=== PATIENT | female | born 1975 | race Caucasian/White ===

== ENCOUNTER 2020-10-22 22:12 | Emergency (ER) | payer OTHER, SELFPAY ==
[2020-10-22 22:13] VITALS: BP 134/57; PULSE 77; RESP 18; TEMP 36.7; O2SAT 99; BMI 61.9
[2020-10-22 23:27] LABS: Glucose Urine UA NEG (NEG); Leukocyte Esterase Urine NEG (NEG); Nitrite Urine NEG (NEG); Urine Blood NEG (NEG); Urine Ketones NEG (NEG); Urine Protein NEG (NEG-TRACE)
[2020-10-22] MEDS: Acetaminophen 325 MG TABLET 975 MG PO (23:28)
[2020-10-22] MEDS: Ibuprofen 400 MG TABLET PO (23:28)
[2020-10-22 23:30] LABS: Appearance Urine CLEAR; Color Urine YELLOW
[2020-10-22 23:38] LABS: Glucose, Whole Blood 103 mg/dL (60-115)
--- NOTE | 2020-10-23 | ED_ITS ---
HPI - General Adult General Chief complaint: General Medical Stated complaint: Bodyaches Time Seen by Provider: 10/22/20 22:54 Source: patient Mode of arrival: ambulatory History of Present Illness HPI narrative: 44-year-old female with history of diabetes presents with entire body aches without associated fever, chills, sore throat, cough. Patient states that this is been ongoing for months and she expresses significant frustration with the process of evaluation between her primary care provider and referrals for recreational therapist regarding her body pain. Otherwise, patient denies any shortness of breath, chest pain / palpitations, nausea /vomiting/diarrhea or urinary symptoms. Patient takes her prescribed medications as directed. Related Data Home Medications Medication Instructions Recorded Confirmed betamethasone dipropionate 1 appl TOPICAL BID 10/22/20 10/22/20 betamethasone, augmented 1 appl TOPICAL BID 10/22/20 10/22/20 triamcinolone acetonide TOPICAL 10/22/20 Previous Rx's Medication Instructions Recorded metformin 500 mg tablet 500 mg PO TID #90 tab 09/04/20 Allergies Allergy/AdvReac Type Severity Reaction Status Date / Time No Known Allergies Allergy Verified 09/04/20 13:33 Review of Systems Review of Systems: Pertinent positives and negatives as stated in HPI 10 point review of systems is otherwise negative. [facility] Past Medical History Source: nursing notes reviewed Medical History Carpal tunnel syndrome Headache Pre-diabetes Surgical History History of cholecystectomy Family History Family History Mother Diabetes Maternal Aunt Diabetes Maternal Grandmother No problems noted. Social History Social History Alcohol intake: never Patient Tobacco Use Status: Never used Tobacco Use of substances other than those prescribed or required for medical reasons: No Advance Directives: No Patient : No Physical Exam Vital Signs: Vital Signs: Last Vital Signs Temp 98.0 F 10/22/20 22:13 Pulse 77 10/22/20 22:13 Resp 18 10/22/20 22:13 BP 134/57 L 10/22/20 22:13 Pulse Ox 99 10/22/20 22:13 Body Mass Index 61.9 VITAL SIGNS: Reviewed. GENERAL: Morbidly obese, well- developed, well nourished, in no acute distress. HEAD: Normocephalic/atraumatic EYES: PERRLA, EOMI EARS: Ext canals without abnormality OROPHARYNX: no oral lesions noted, posterior pharynx clear LUNGS: Normal breath sounds. No adventitious sounds or accessory muscle use. SpO2<99> CARDIOVASCULAR: Regular rate and rhythm without noted murmurs, no JVD or lower extremity edema. ABDOMEN: obese, Soft, non-tender, non-distended with bowel sounds. Exam limited by body habitus. MUSCULOSKELETAL: No tenderness, deformities, or effusions noted on gross inspection. EXTREMITIES: No cyanosis, clubbing or edema. SKIN: Inspection of the skin reveals no rashes NEUROLOGIC: Alert and oriented x 4. Strength and sensation to light touch were grossly intact x 4. Course Course Course Narrative: 44-year-old female with history and clinical presentation consistent with chronic body pain that her primary care provider is aware of and that she has been provided a referral to Rheumatology for but states that she is frustrated with the lengthy process. There is no evidence to suggest infectious, autoimmune or viral etiologies given patient's reported endorsement of chronicity. Extensive counseling was conducted with the patient regarding the benefits of pursuing bariatric options and discussing with her primary care provider the possibility of physical therapy and/or pain management. Patient acknowledges that it is a process and was encouraged to continue with the bariatric/ weight loss program. Patient was provided with combination analgesics. On review of all investigations there were no acute findings to suggest hyperglycemia, UTI and doubt any infectious etiology. Patient was discharged home in stable condition with encouragement to follow up with her primary care provider and explicitly ask for referrals. Medical Decision Making Lab Data Labs: Lab Results 10/22/20 10/22/20 Range/Units 23:20 23:32 POC Glucose 103 (60-115) mg/dL Urine Color YELLOW Urine Appearance CLEAR Urine pH 6.0 (5.0-8.0) Ur Specific [place] 1.020 (1.005-1.025) Urine Protein NEG (NEG-TRACE) MG/DL Urine Glucose (UA) NEG (NEG) MG/DL Urine Ketones NEG (NEG) MG/DL Urine Blood NEG (NEG) Urine Nitrite NEG (NEG) Ur Leukocyte Esterase NEG (NEG) Discharge Plan Discharge Clinical Impression: Generalized body aches, Morbid obesity, Arthritis Patient Disposition: Home, Self-Care Instructions: Pain Management (ED), Arthritis (ED), Weight Management (ED), Jonathan-en-Y Gastric Bypass (DC), Laparoscopic Sleeve Gastrectomy (DC), Adjustable Gastric Band Surgery (DC) Additional Instructions: 1. Tylenol 1000 mg, por v?a oral, cada 6 horas seg?n sea necesario para controlar el dolor. No exceda los 4000 mg en 24 horas. 2. Ibuprofeno 400 mg, por v?a oral con leche o alimentos, cada 6 horas seg?n sea necesario para controlar el dolor. Recomiende mali esto con Tylenol para un mayor alivio de los s?ntomas. 3. Se le phan proporcionado informaci?n sobre los diversos procedimientos quir?rgicos anthony?tricos con fines informativos. Regrese a la madelin de emergencias si josé miguel s?ntomas empeoran de manera aguda. Prescriptions: No Action metformin 500 mg tablet 500 mg PO TID Qty: 90 RF: 2 triamcinolone acetonide 0.1 % ointment topical RF: 0 betamethasone, augmented 0.05 % ointment 1 appl topical BID RF: 0 betamethasone dipropionate 0.05 % lotion 1 appl topical BID RF: 0 Referrals: Celeste Shrestha NP [Primary Care Provider] - 2 days (Referral for weight loss, bariatric surgery?) Print Language: Norwegian
[2020-10-23] MEDS: Ketorolac Tromethamine 15 MG/ML VIAL IM (00:16)
== END 2020-10-23 01:00 | disposition home or self-care (01) ==
PROVIDERS: Emergency Provider Student in an Organized Health Care Education/Training Program; PCP Hospitalist
DX: R52 Pain, unspecified (principal); E66.01 Morbid (severe) obesity due to excess calories; Z68.44 Body mass index [BMI] 60.0-69.9, adult; M19.90 Unspecified osteoarthritis, unspecified site; E11.9 Type 2 diabetes mellitus without complications; Z79.84 Long term (current) use of oral hypoglycemic drugs
CPT/HCPCS: 81003; 82947; 96372; 99284; J1885

== ENCOUNTER 2020-10-31 19:37 | Emergency (ER) | payer OTHER, SELFPAY ==
[2020-10-31 19:59] VITALS: BP 115/76; PULSE 75; RESP 18; TEMP 36.5; O2SAT 99; BMI 50.1
[2020-10-31 20:32] VITALS: BP 154/87; PULSE 68; RESP 19; TEMP 36.7; O2SAT 100
[2020-10-31] MEDS: Acetaminophen 325 MG TABLET 975 MG PO (21:59)
--- NOTE | 2020-10-31 22:25 | ED.HA ---
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 Patient states she has had a headache before and denies any trauma and states that she used [id number] analgesics twice over the past few days. Otherwise, she denies any GI or symptoms. Related Data Home Medications Medication Instructions Recorded Confirmed betamethasone dipropionate 1 appl TOPICAL BID 10/22/20 10/22/20 betamethasone, augmented 1 appl TOPICAL BID 10/22/20 10/22/20 triamcinolone acetonide TOPICAL 10/22/20 Previous Rx's Medication Instructions Recorded metformin 500 mg tablet 500 mg PO TID #90 tab 09/04/20 Allergies Allergy/AdvReac Type Severity Reaction Status Date / Time No Known Allergies Allergy Verified 09/04/20 13:33 Review of Systems Review of Systems: Pertinent positives and negatives as stated in HPI 10 point review systems otherwise negative. PMFSH Past Medical History Source: nursing notes reviewed Medical History Carpal tunnel syndrome Headache Pre-diabetes Surgical History History of cholecystectomy Family History Family History Mother Diabetes Maternal Aunt Diabetes Maternal Grandmother No problems noted. Social History Social History Alcohol intake: never Patient Tobacco Use Status: Never used Tobacco Advance Directives: No Advance Directives Information Provided: No Patient : No Physical Exam Vital Signs: Vital Signs: Last Vital Signs Temp 98.0 F 10/31/20 20:32 Pulse 68 10/31/20 20:32 Resp 19 10/31/20 20:32 BP 154/87 H 10/31/20 20:32 Pulse Ox 100 10/31/20 20:32 Body Mass Index 50.1 VITAL SIGNS: Reviewed. GENERAL: Well developed, well nourished, in no acute distress. HEAD: Normocephalic/atraumatic EYES: PERRLA, EOMI EARS: Ext canals without abnormality NOSE: Nares patent bilateral OROPHARYNX: no oral lesions noted, posterior pharynx clear NECK: Supple, no adenopathy LUNGS: Normal breath sounds. No adventitious sounds or accessory muscle use. SpO2 <100> CARDIOVASCULAR: Regular rate and rhythm without noted murmurs ABDOMEN: Soft, non-tender, non-distended with bowel sounds. MUSCULOSKELETAL: No tenderness, deformities, or effusions noted on gross inspection. EXTREMITIES: No cyanosis, clubbing or edema. SKIN: Inspection of the skin reveals no rashes, ulcerations, jaundice, pallor, or petechiae. NEUROLOGIC: Alert and oriented x 4. Strength and sensation to light touch were grossly intact x 4, no pr in her drift, no facial asymmetry, cranial nerves 2-12 are grossly intact. Course Course Course Narrative: 44-year-old female with history and clinical presentation consistent with likely tension headache as there are no symptoms consistent with migraine in nature. Will offer combination analgesics and check urinalysis and urine . On re-evaluation review of all investigations there are no acute findings and patient reports complete resolution of her headache. She was discharged home in stable condition with recommendations to follow-up with her primary care provider. MDM - Headache Lab Data Labs: Lab Results 10/31/20 10/31/20 10/31/20 Range/Units 22:30 22:30 23:37 POC Glucose 101 (60-115) mg/dL Urine Color YELLOW Urine Appearance CLEAR Urine pH 6.0 (5.0-8.0) Ur Specific [place] 1.025 (1.005-1.025) Urine Protein NEG (NEG-TRACE) MG/DL Urine Glucose (UA) NEG (NEG) MG/DL Urine Ketones NEG (NEG) MG/DL Urine Blood NEG (NEG) Urine Nitrite NEG (NEG) Ur Leukocyte Esterase NEG (NEG) Urine Test NEGATIVE (NEGATIVE) Discharge Plan Discharge Clinical Impression: Headache Patient Disposition: Home, Self-Care Instructions: General Headache (ED) Additional Instructions: 1. Reanude todos los medicamentos caseros seg?n lo prescrito. 2. Tylenol 1000 mg, por v?a oral, cada 6 horas seg?n sea necesario para el dolor de kina. No exceda los 4000 mg en 24 horas. 3. Ibuprofeno 400 mg, por v?a oral con leche o alimentos, cada 6 horas seg?n sea necesario para controlar el dolor. 4. Yosi un seguimiento con cosme proveedor de atenci?n primaria en los pr?ximos 2-3 d?as para holli reevaluaci?n. Regrese a la madelin de emergencias por un empeoramiento lea de los s?ntomas. Prescriptions: No Action metformin 500 mg tablet 500 mg PO TID Qty: 90 RF: 2 triamcinolone acetonide 0.1 % ointment topical RF: 0 betamethasone, augmented 0.05 % ointment 1 appl topical BID RF: 0 betamethasone dipropionate 0.05 % lotion 1 appl topical BID RF: 0 Referrals: Physician,Unknown [Primary Care Provider] - 2 days Print Language: Mohawk
[2020-10-31 22:36] LABS: Glucose Urine UA NEG (NEG); Leukocyte Esterase Urine NEG (NEG); Nitrite Urine NEG (NEG); Specific Gravity - Urine 1.025 (1.005-1.025); Urine Blood NEG (NEG); Urine Ketones NEG (NEG); Urine Protein NEG (NEG-TRACE)
[2020-10-31 22:41] LABS: Appearance Urine CLEAR; Color Urine YELLOW; UPreg QC Valid YES; Urine Pregnancy NEGATIVE (NEGATIVE)
[2020-10-31] MEDS: Butalb/Acetamin/Caff 50/325/40 TABLET 1 TAB PO (23:39)
[2020-10-31] MEDS: Ketorolac Tromethamine 15 MG/ML VIAL IM (23:39)
[2020-10-31 23:41] LABS: Glucose, Whole Blood 101 mg/dL (60-115)
== END 2020-11-01 00:56 | disposition home or self-care (01) ==
PROVIDERS: Emergency Provider Student in an Organized Health Care Education/Training Program
DX: R51.9 Headache, unspecified (principal); E11.9 Type 2 diabetes mellitus without complications; Z79.84 Long term (current) use of oral hypoglycemic drugs; Z79.899 Other long term (current) drug therapy
CPT/HCPCS: 81003; 81025; 82947; 96372; 99284; J1885

== ENCOUNTER → 2020-11-19 13:06 | Outpatient (BNVA) | payer OTHER, SELFPAY | PROVIDERS: Visit Provider Physician Assistant ==

== ENCOUNTER 2021-02-26 12:47 | Outpatient (REF) | payer OTHER, SELFPAY ==
[2021-02-26 14:20] LABS: Hematocrit 39.1 % (37.0-47.0); Hemoglobin 12.9 g/dl (12.0-16.0); Mean Corpuscular Hemoglobin 28.9 pg (27.0-33.0); Mean Corpuscular Volume 87.7 fL (80.0-98.0); Mean Platelet Volume 10.1 fL (9.4-12.3); Platelet Count 334 X10*3/uL (160-400); Red Blood Count 4.46 X10*6/uL (4.20-5.50); Red Cell Distribution Width 13.9 % (11.0-16.0); White Blood Count 10.2 X10*3/uL (4.8-10.8)
[2021-02-26 14:35] LABS: Alanine Aminotransferase 20 U/L (0-31); Albumin Level 3.8 g/dL (3.5-5.0); Alkaline Phosphatase 87 U/L (39-117); Anion Gap 8 (12-20); Aspartate Amino Transferase 12 U/L (5-31); Bilirubin Total 0.3 mg/dL (0.0-1.0); Blood Urea Nitrogen 12 mg/dL (9-16); Calcium 8.8 mg/dL (8.4-10.2); Carbon Dioxide 30 mmol/L (22-29); Chloride 103 mmol/L (96-108); Cholesterol 156 mg/dL; Estimated Glomerular Filt Rate > 60; Glucose Random 183 mg/dL (60-115); HDL Cholesterol 32 mg/dL; LDL Cholesterol Calculated 85 mg/dl; Potassium 4.3 mmol/L (3.3-5.1); Sodium 137 mmol/L (135-145); Total Protein 7.3 g/dL (6.5-8.0); Triglycerides 198 mg/dL
[2021-02-26 14:56] LABS: TSH reflex Free T4 1.92 uIU/mL (0.32-4.0)
== END 2021-02-26 12:48 | disposition home or self-care (01) ==
LOC: HO.WFDLDS 12:47
PROVIDERS: Visit Provider Hospitalist
DX: Z00.00 Encounter for general adult medical examination without abnormal findings (principal)
CPT/HCPCS: 36415; 80053; 80061; 84443; 85027